=== PATIENT | male | born 1980 | race Caucasian/White ===

== ENCOUNTER 2018-03-20 00:04 | Emergency (ER) | payer BC ==
[~2018-03-20] VITALS: Ht 175.3 cm; Wt 88.0 kg
[2018-03-20 00:20] VITALS: BP 136/89
== END 2018-03-20 00:41 | disposition home or self-care (01) ==
LOC: ER 00:07
DX: H60.02 Abscess of left external ear (principal); H60.12 Cellulitis of left external ear; F17.200 Nicotine dependence, unspecified, uncomplicated; Z88.6 Allergy status to analgesic agent; Z98.890 Other specified postprocedural states
CPT/HCPCS: 99283; A4606; Z7610